=== PATIENT | female | born 1990 | race Caucasian/White ===

== ENCOUNTER 2016-10-29 06:03 | Inpatient (IN) | payer OTHER ==
[~2016-10-29] VITALS: Ht 170.2 cm; Wt 73.0 kg
[2016-10-29] VITALS (10 sets, daily range): BP systolic 118–133; BP diastolic 73–81
[2016-10-29 07:45] LABS: EOSINOPHIL (%) 0 % (0-5); HEMATOCRIT 31.6 % (36.0-46.0); IMMATURE GRANULOCYTE (%) 0.6 % (0.0-0.7); IMMATURE GRANULOCYTE COUNT 0.1 K/uL; INSTRUMENT ABS NEUTROPHIL CT 9.7 K/uL; MCH 31.4 PG (29.0-34.0); MCHC 35.8 G/DL (30.0-36.0); MCV 87.8 FL (83-99); MEAN PLAT.VOLUME 9.6 uM^3 (9.5-12.4); MONOCYTE (%) 5.1 % (3-12); MONOCYTE COUNT 0.6 K/uL (0-0.8); NEUTROPHIL (%) 85.5 % (45-76); NEUTROPHIL COUNT 9.7 K/uL (1.8-6.4); PLATELET COUNT 182 K/uL (156-360); RBC DIS.WIDTH-CV 12.8 % (11.8-14.6); RBC DIS.WIDTH-SD 40.8 % (39-53); WHITE BLOOD COUNT 11.3 K/uL (4.1-10.2)
== END 2016-10-29 17:25 | disposition home or self-care (01) | DRG 779 ==
LOC: EME 06:03 → EDSTATUS 06:18 → LDRP-OP 06:20 → 2WEST 06:21
PROVIDERS: Nurse Practitioner
DX: O03.9 Complete or unspecified spontaneous abortion without complication (principal); D26.7 Other benign neoplasm of other parts of uterus; O43.892 Other placental disorders, second trimester; O34.12 Maternal care for benign tumor of corpus uteri, second trimester; O98.512 Other viral diseases complicating pregnancy, second trimester; B00.9 Herpesviral infection, unspecified; O35.3XX0 Maternal care for (suspected) damage to fetus from viral disease in mother, not applicable or unspecified; Z3A.20 20 weeks gestation of pregnancy
CPT/HCPCS: 85025; 87070; 87075; 87205; 88307

== ENCOUNTER 2016-10-30 08:24 | Emergency (ER) | payer OTHER ==
[~2016-10-30] VITALS: Ht 167.6 cm; Wt 71.8 kg
[2016-10-30 09:02] LABS: HEMATOCRIT 31.2 % (36.0-46.0); MCH 31.5 PG (29.0-34.0); MCHC 35.9 G/DL (30.0-36.0); MCV 87.6 FL (83-99); MEAN PLAT.VOLUME 9.5 uM^3 (9.5-12.4); PLATELET COUNT 224 K/uL (156-360); RBC DIS.WIDTH-CV 12.8 % (11.8-14.6); RBC DIS.WIDTH-SD 41.1 % (39-53); RED BLOOD COUNT 3.56 M/uL (3.80-5.20); WHITE BLOOD COUNT 12.8 K/uL (4.1-10.2)
[2016-10-30 09:11] LABS: ADD MIUA? YES; BILIRUBIN NEGATIVE; BLOOD SMALL; COLOR COLORLESS ((YELLOW)); GLUCOSE (STRIP) 150; KETONES NEGATIVE; LEUKOCYTES NEGATIVE; NITRITE NEGATIVE; PROTEIN (STRIP) NEGATIVE; SPECIFIC GRAVITY 1.002 (1.000-1.030); UROBILINOGEN 0.2 MG/DL (0.2-1.0)
[2016-10-30 09:12] LABS: CHLORIDE 113 mEq/L (99-109); POTASSIUM 3.4 mEq/L (3.7-5.4); SODIUM 141 mEq/L (136-147)
[2016-10-30 09:13] LABS: BACTERIA NONE SEEN /HPF; EPITHELIAL CELLS RARE /HPF; MUCUS NONE SEEN /LPF; RED BLOOD CELLS 0-5 /HPF (0-5); WHITE BLOOD CELLS 0-5 /HPF (0-5)
[2016-10-30 09:15] LABS: GLUCOSE 166 mg/dL (70-99)
[2016-10-30 09:16] LABS: ANION GAP 11 MEQ/L (2-14)
[2016-10-30 09:17] LABS: TOTAL BILIRUBIN 0.2 mg/dL (0.0-1.0)
[2016-10-30 09:18] LABS: ALKALINE PHOSPHATASE 67 IU/L (3-129)
[2016-10-30 09:19] LABS: GFR ESTIMATE (CALCULATED) > 59 mL/min/
[2016-10-30 09:20] LABS: UREA NITROGEN (BUN) 5 mg/dL (9-23)
[2016-10-30 09:27] LABS: QUANTITATIVE HCG 5036.3 MIU/ML
[2016-10-30 12:08] VITALS: BP 127/83
== END 2016-10-30 12:09 | disposition home or self-care (01) ==
LOC: EME 08:24
PROVIDERS: Nurse Practitioner Family
DX: O90.89 Other complications of the puerperium, not elsewhere classified (principal); R55 Syncope and collapse; R00.0 Tachycardia, unspecified; R10.9 Unspecified abdominal pain
CPT/HCPCS: 76856; 80053; 81003; 84702; 85027; 86850; 86900; 86901; 99281; 99285; J7030

== ENCOUNTER 2016-11-14 13:26 | Emergency (ER) | payer OTHER ==
[~2016-11-14] VITALS: Ht 170.2 cm; Wt 72.0 kg
[2016-11-14 14:44] LABS: HEMATOCRIT 35.9 % (36.0-46.0); MCH 31.3 PG (29.0-34.0); MCHC 34.5 G/DL (30.0-36.0); MCV 90.7 FL (83-99); MEAN PLAT.VOLUME 9.3 uM^3 (9.5-12.4); PLATELET COUNT 321 K/uL (156-360); RBC DIS.WIDTH-CV 11.9 % (11.8-14.6); RBC DIS.WIDTH-SD 39.8 % (39-53); RED BLOOD COUNT 3.96 M/uL (3.80-5.20); WHITE BLOOD COUNT 7.6 K/uL (4.1-10.2)
[2016-11-14 14:51] LABS: CHLORIDE 111 mEq/L (99-109); SODIUM 143 mEq/L (136-147)
[2016-11-14 14:53] LABS: GLUCOSE 115 mg/dL (70-99)
[2016-11-14 14:54] LABS: ANION GAP 11 MEQ/L (2-14)
[2016-11-14 14:55] LABS: TOTAL BILIRUBIN 0.2 mg/dL (0.0-1.0)
[2016-11-14 14:56] LABS: ALKALINE PHOSPHATASE 70 IU/L (3-129)
[2016-11-14 14:57] LABS: GFR ESTIMATE (CALCULATED) > 59 mL/min/
[2016-11-14 14:58] LABS: UREA NITROGEN (BUN) 9 mg/dL (9-23)
[2016-11-14 15:00] LABS: LIPASE 89 U/L (1.0-51.0)
[2016-11-14 15:20] LABS: ADD MIUA? NO; BILIRUBIN NEGATIVE; BLOOD NEGATIVE; COLOR COLORLESS ((YELLOW)); GLUCOSE (STRIP) NEGATIVE; KETONES NEGATIVE; LEUKOCYTES NEGATIVE; NITRITE NEGATIVE; PROTEIN (STRIP) NEGATIVE; SPECIFIC GRAVITY 1.006 (1.000-1.030); UROBILINOGEN 0.2 MG/DL (0.2-1.0)
[2016-11-14] MEDS ORDERED: ZOFRAN ODT4 MG PO (15:59)
[2016-11-14 16:17] VITALS: BP 111/72
== END 2016-11-14 16:19 | disposition home or self-care (01) ==
LOC: EME 13:26
PROVIDERS: Nurse Practitioner Family
DX: R74.8 Abnormal levels of other serum enzymes (principal); R50.9 Fever, unspecified; R10.9 Unspecified abdominal pain; R11.2 Nausea with vomiting, unspecified
CPT/HCPCS: 80053; 81003; 83605; 83690; 84702; 85027; 99281; 99284

== ENCOUNTER 2017-05-12 11:16 | Emergency (ER) | payer OTHER ==
[~2017-05-12] VITALS: Ht 167.6 cm; Wt 77.1 kg
[~2017-05-12 11:16] MED LIST: ZOFRAN ODT4 MG PO
[2017-05-12 12:03] LABS: HEMATOCRIT 40.6 % (36.0-46.0); HEMOGLOBIN 13.8 G/DL (11.9-15.5); MCH 28.4 PG (29.0-34.0); MCV 83.5 FL (83-99); PLATELET COUNT 277 K/uL (156-360); RBC DIS.WIDTH-CV 11.9 % (11.8-14.6); RBC DIS.WIDTH-SD 36.3 % (39-53); RED BLOOD COUNT 4.86 M/uL (3.80-5.20); WHITE BLOOD COUNT 8.5 K/uL (4.1-10.2)
[2017-05-12 12:17] LABS: ALBUMIN 4.6 g/dL (3.2-4.8)
[2017-05-12 12:18] LABS: CHLORIDE 109 mEq/L (99-109); POTASSIUM 3.4 mEq/L (3.7-5.4); SODIUM 141 mEq/L (136-147)
[2017-05-12 12:20] LABS: GLUCOSE 103 mg/dL (70-99); TOTAL PROTEIN 8.9 g/dL (6.4-8.3)
[2017-05-12 12:22] LABS: TOTAL BILIRUBIN 0.5 mg/dL (0.0-1.0)
[2017-05-12 12:23] LABS: ALKALINE PHOSPHATASE 74 IU/L (3-129)
[2017-05-12 12:24] LABS: CREATININE 0.8 mg/dL (0.6-1.3); GFR ESTIMATE (CALCULATED) > 59 mL/min/
[2017-05-12 12:25] LABS: AST (GOT) 16 IU/L (2-34); UREA NITROGEN (BUN) 9 mg/dL (9-23)
[2017-05-12 12:27] LABS: ALT (GPT) 10 IU/L (3-49)
[2017-05-12 12:33] LABS: QUANTITATIVE HCG < 4.0 MIU/ML
[2017-05-12 12:36] LABS: APPEARANCE CLEAR ((CLEAR)); BILIRUBIN NEGATIVE; BLOOD NEGATIVE; COLOR STRAW ((YELLOW)); GLUCOSE (STRIP) NEGATIVE; KETONES NEGATIVE; LEUKOCYTES NEGATIVE; NITRITE NEGATIVE; PROTEIN (STRIP) NEGATIVE; SPECIFIC GRAVITY 1.004 (1.000-1.030); UCUL ADDED? NO; UROBILINOGEN 0.2 MG/DL (0.2-1.0)
[2017-05-12 13:58] LABS: LIPASE 43 U/L (1.0-51.0)
[2017-05-12] MEDS ORDERED: ZOFRAN4 MG PO (16:10)
[2017-05-12] MEDS ORDERED: MOTRIN600 MG PO (16:10)
[2017-05-12 16:23] VITALS: BP 132/78
== END 2017-05-12 16:24 | disposition home or self-care (01) ==
LOC: EME 11:16 → RME 11:16
DX: I88.0 Nonspecific mesenteric lymphadenitis (principal); R10.31 Right lower quadrant pain
CPT/HCPCS: 74177; 80053; 81003; 83690; 84702; 85027; 99281; 99284; J1885; J2405; J7030

== ENCOUNTER 2017-10-17 05:12 | Emergency (ER) | payer OTHER ==
[~2017-10-17] VITALS: Ht 167.6 cm; Wt 76.9 kg
[~2017-10-17 05:12] MED LIST changes: +MOTRIN600 MG PO; +ZOFRAN4 MG PO
[2017-10-17 06:06] LABS: HEMATOCRIT 32.7 % (36.0-46.0); HEMOGLOBIN 11.4 G/DL (11.9-15.5); MCH 28.8 PG (29.0-34.0); MCHC 34.9 G/DL (30.0-36.0); MCV 82.6 FL (83-99); PLATELET COUNT 220 K/uL (156-360); RBC DIS.WIDTH-SD 36.1 % (39-53); RED BLOOD COUNT 3.96 M/uL (3.80-5.20); WHITE BLOOD COUNT 9.2 K/uL (4.1-10.2)
[2017-10-17 06:16] LABS: CHLORIDE 109 mEq/L (99-109); POTASSIUM 3.6 mEq/L (3.7-5.4); SODIUM 138 mEq/L (136-147)
[2017-10-17 06:18] LABS: GLUCOSE 102 mg/dL (70-99); TOTAL PROTEIN 7.4 g/dL (6.4-8.3)
[2017-10-17 06:20] LABS: TOTAL BILIRUBIN 0.3 mg/dL (0.0-1.0)
[2017-10-17 06:22] LABS: ALKALINE PHOSPHATASE 56 IU/L (3-129); CREATININE 0.7 mg/dL (0.6-1.3); GFR ESTIMATE (CALCULATED) > 59 mL/min/
[2017-10-17 06:23] LABS: UREA NITROGEN (BUN) 9 mg/dL (9-23)
[2017-10-17 06:24] LABS: AST (GOT) 14 IU/L (2-34)
[2017-10-17 06:25] LABS: ALT (GPT) 9 IU/L (3-49)
[2017-10-17 06:31] LABS: QUANTITATIVE HCG 12982.9 MIU/ML
[2017-10-17 08:38] LABS: APPEARANCE SL.HAZY ((CLEAR)); BILIRUBIN NEGATIVE; BLOOD LARGE; GLUCOSE (STRIP) NEGATIVE; KETONES NEGATIVE; LEUKOCYTES LARGE; NITRITE NEGATIVE; PROTEIN (STRIP) 100; SPECIFIC GRAVITY 1.008 (1.000-1.030); UROBILINOGEN 0.2 MG/DL (0.2-1.0)
[2017-10-17 08:40] LABS: COLOR RED ((YELLOW))
[2017-10-17 08:54] LABS: RED BLOOD CELLS TNTC /HPF (0-5); UCUL ADDED? YES
[2017-10-17 10:05] VITALS: BP 135/86
== END 2017-10-17 10:07 | disposition home or self-care (01) ==
LOC: EME 05:12
PROVIDERS: Physician Assistant
DX: O03.4 Incomplete spontaneous abortion without complication (principal); Z98.890 Other specified postprocedural states
CPT/HCPCS: 76801; 80053; 81003; 84702; 85027; 87086; 99281; 99285